=== PATIENT | female | born 1965 | race Caucasian/White ===

== ENCOUNTER 2024-08-02 15:57 | Emergency (ER) | payer OTHER, SELFPAY ==
--- NOTE | ~2024-08-02 | XR_ITS ---
EXAM: XR elbow LT min 3V, XR forearm LT 2V DATE: 08/02/2024 17:55 HISTORY: fall . COMPARISON: None available. FINDINGS: Normal mineralization. No fracture or dislocation. No lytic or blastic lesion. Screw fixat ion of the trochlea. Metallic debris in the distal humerus. Moderate degenerative changes at the elbo w joint including radial head osteophytosis. Lateral epicondylar enthesopathy. No erosion or perioste al change. Suggestion of moderate volume joint fluid, determination is limited by positioning. IMPRESSION: No definite acute osseous finding in the left elbow or forearm. Likely moderate volume el bow joint effusion, may be secondary to degenerative changes or acute effusion from occult fracture, typically radial head fracture in a patient of this age. Reviewed, dictated and finalized at location [facility]. IMPRESSION: No definite acute osseous finding in the left elbow or forearm. Lik apolinar moderate volume elbow joint effusion, may be secondary to degenerative prince ges or acute effusion from occult fracture, typically radial head fracture in a patient of this age.
[2024-08-02 16:02] VITALS: BP 173/91; PULSE 84; RESP 16; TEMP 36.4; O2SAT 97
--- NOTE | 2024-08-02 17:29 | ED.UPPEXIN ---
HPI - Extremity Injury (Upper) General Chief Complaint: Extremity Injury, Upper Stated Complaint: fell, L arm injury Time Seen by Provider: 08/02/24 17:30 History of Present Illness HPI narrative: 58-year-old female presents to the emergency department for ground level fall that occurred at 2:00 p.m. today. Patient states she was walking on a sidewalk and slipped, lost her balance and fell. States she landed with her hands outstretched. She did not hit her head or lose consciousness. She is reporting pain to her left elbow and left forearm. She is not anticoagulated. Denies injuries to her neck, back or remainder of extremities. No other injuries acquired. Related Data Allergies Allergy/AdvReac Type Severity Reaction Status Date / Time morphine Allergy Itching Verified 08/02/24 17:35 Review of Systems Review of Systems: All systems reviewed & are unremarkable except as noted in HPI and below Exam Narrative: GENERAL: Well-appearing, well-nourished, and in no acute distress. HEAD: Normocephalic, atraumatic. NECK: No midline cervical spinous tenderness, step-offs or deformities BACK: No midline thoracolumbar spinous tenderness, step-offs or deformities CHEST: Clear to auscultation. No respiratory distress. HEART: Regular rate and rhythm. No murmur heard. Normal peripheral pulses. EXTREMITIES: RUE: Tenderness to the mid and proximal radius to palpation. Full active and passive range of motion of elbow with worsening pain with active flexion and supination. No significant overlying edema, no erythema, no obvious deformity. No tenderness remainder of extremity. Radial pulse 2 +. Sensation intact. Radial, median and ulnar nerves are intact. SKIN: Warm, dry, no rash. NEURO: No focal deficits. Alert and oriented x3 Course Vital Signs Vital signs: Vital Signs Temperature 97.6 F 08/02/24 16:02 Pulse Rate 84 08/02/24 16:02 Respiratory Rate 16 08/02/24 16:02 Blood Pressure 173/91 H 08/02/24 16:02 Pulse Oximetry 97 08/02/24 16:02 Temperature 97.6 F 08/02/24 16:02 Pulse Rate 84 08/02/24 16:02 Respiratory Rate 16 08/02/24 16:02 Blood Pressure 173/91 H 08/02/24 16:02 Pulse Oximetry 97 08/02/24 16:02 MDM - Extremity Injury (Upper) MDM Narrative Medical decision making narrative: 58 y/o F presents to the ED for left elbow and forearm pain after a mechanical injury that occurred at 2:00 p.m. today. See HPI. Triage vitals with blood pressure 173/91, otherwise unremarkable. Exam is significant for tenderness to the proximal radius, pain with full flexion and supination. She is neurovascularly intact. X-ray of the elbow and forearm no definitive acute osseous finding the left elbow or forearm. There is a likely moderate volume elbow joint effusion which may be secondary to degenerative changes or acute effusion from the occult fracture, typically radial head fracture patient of this age. I discussed the workup with orthopedist, Dr. Colón, who advises a posterior long-arm and follow-up with his clinic. Referral provided. Missael sent to pharmacy for breakthrough pain. Strict ED return precautions discussed. He is agreeable to plan verbalized understanding. Discharged in stable condition. Discharge Plan Discharge Clinical Impression: Effusion of elbow joint, left Elbow pain Qualifiers: Laterality: left Qualified Code(s): M25.522 - Pain in left elbow Patient Disposition: Home, Self-Care Condition: Stable Instructions: Antibiotic Form, Elbow Sprain (ED) Additional Instructions: You were evaluated in the emergency department for left elbow pain. Your x-ray shows a possible very small fracture with swelling. Please leave the splint on a follow-up closely with the orthopedist. Return to the emergency department if he develops significantly worsening pain, white or numb hand, or other concerning symptoms. Prescriptions: New hydrocodone-acetaminophen 5-325
[2024-08-02] MEDS: ACETAMINOPHEN 500 MG TABLET 1000 MG PO (17:36)
== END 2024-08-02 18:44 | disposition home or self-care (01) ==
PROVIDERS: Emergency Provider Physician Assistant
DX: S59.902A Unspecified injury of left elbow, initial encounter (principal); M25.422 Effusion, left elbow; W01.0XXA Fall on same level from slipping, tripping and stumbling without subsequent striking against object, initial encounter
CPT/HCPCS: 29105; 73080; 73090; 99284; A4565; A9270